=== PATIENT | female | born 1980 | race African-American/Black ===

== ENCOUNTER 2016-08-26 18:13 | Emergency (ER) | payer OTHER ==
[2016-08-26] MEDS ORDERED: ACETAMINOPHEN 325 MG TABLET PO ONE (18:25)
--- NOTE | 2016-08-26 18:26 | ER Document Report ---
ED Medical Screen (RME) - General Stated Complaint: FLU LIKE SYPTOMS Notes: Patient complains of flulike symptoms with sudden onset that started yesterday. Temp 103. Last dose of Tylenol was about 4 hours ago. No N/V/D/ - Related Data Allergies/Adverse Reactions: NSAIDS (Non-Steroidal Anti-Inflamma Allergy (Verified 08/26/16 18:25) steriods Allergy (Uncoded 08/26/16 18:25)
[2016-08-26 19:15] LABS: AMORPHOUS SEDIMENT,URINE TRACE /HPF; APPEARANCE,URINE CLOUDY; BILIRUBIN,URINE NEGATIVE (NEGATIVE); CALCIUM OXALATE CRYSTALS,URINE MODERATE /HPF; GLUCOSE, URINE NEGATIVE (NEGATIVE); KETONES,URINE TRACE mg/dL (NEGATIVE); LEUKOCYTE ESTERASE,URINE MODERATE (NEGATIVE); NITRITE,URINE NEGATIVE (NEGATIVE); PROTEIN,URINE 30 mg/dL (NEGATIVE); URINE SPECIFIC GRAVITY 1.021; UROBILINOGEN,URINE NEGATIVE mg/dL (<2.0)
[2016-08-26] MEDS ORDERED: ONDANSETRON 4 MG TAB.RAPDIS PO ONE (19:15)
[2016-08-26] MEDS ORDERED: PROMETHAZINE HCL 25 MG TABLET PO ONE (19:15)
[2016-08-26] MEDS ORDERED: OXYCODONE-ACETAMINOPHEN 5-325 MG TABLET PO ONE (19:15)
[2016-08-26] MEDS ORDERED: LIDOCAINE 1% INJ-PF (10 MG/ML) 30 ML SDV INJ ONE (19:59)
[2016-08-26] MEDS ORDERED: CEFTRIAXONE INJ 1000 MG VIAL IM ONE (19:59)
--- NOTE | 2016-08-26 20:11 | ER Document Report ---
ED Flu Like - General Chief Complaint: Flu Symptoms Stated Complaint: FLU LIKE SYPTOMS Notes: Patient has been sick since with symptoms typical of the flu. She says that she's had a cold and feels cold with fever. She has general aching in her bones, feeling freezing and cold and chills, nauseated but not vomiting. She has noted her head is pounding and she has head congestion. No sore throat or difficulty breathing. She has a primarily dry cough without any significant sputum production. 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 TRAVEL OUTSIDE OF THE [place] IN LAST 30 DAYS: No - Related Data Allergies/Adverse Reactions: NSAIDS (Non-Steroidal Anti-Inflamma Allergy (Verified 08/26/16 18:25) steriods Allergy (Uncoded 08/26/16 18:25) Past Medical History - Social History Smoking Status: Unknown if Ever Smoked Cigarette use (# per day): No Chew tobacco use (# tins/day): No Frequency of alcohol use: None Drug Abuse: None Family History: Reviewed & Not Pertinent Patient has suicidal ideation: No Patient has homicidal ideation: No Endocrine Medical History: Denies: Hx Diabetes Mellitus Type 1, Hx Diabetes Mellitus Type 2 Past Surgical History: Reports: Hx Gastric Bypass Surgery Review of Systems - Review of Systems Notes: REVIEW OF SYSTEMS: CONSTITUTIONAL : Fever present at home. Audible nasal congestion. Voice sounds normal. EENT: Denies eye, ear, or mouth or throat pain or other symptoms. Nasal congestion. CARDIOVASCULAR: Denies chest pain. RESPIRATORY: Dry cough, chest and not much congestion. Denies shortness of breath. GASTROINTESTINAL: Denies abdominal pain. Has nausea but not vomiting and no diarrhea. GENITOURINARY: Denies difficulty or painful urinating, urinary frequency, blood in urine. MUSCULOSKELETAL: Denies back or neck pain. Denies joint pain or swelling. SKIN: Denies rash or skin lesions. NEUROLOGICAL: Denies LOC or altered mental status. Denies headache. Denies sensory loss or motor deficits. ALL OTHER SYSTEMS REVIEWED AND NEGATIVE. Physical Exam - Vital signs Vitals: Temp Pulse Resp BP Pulse Ox 100.6 F H 133 H 12 148/105 H 98 08/26/16 18:23 08/26/16 18:23 08/26/16 18:23 08/26/16 18:23 08/26/16 18:23 Interpretation: Tachycardic, Febrile - Notes Notes: PHYSICAL EXAMINATION: GENERAL: Anxious, congested, tearful. Vital signs show some tachycardia and low -grade fever.. HEAD: Atraumatic, normocephalic. EYES: Pupils equal round and reactive to light, extraocular movements intact. ENT: oropharynx clear without exudates. Moist mucous membranes. NECK: Normal range of motion, supple. Easily touch his chin to chest, shaking head yes without any difficulty. LUNGS: Breath sounds clear and equal bilaterally. HEART: Regular rate and rhythm without murmurs. Heart rate 120 at bedside by me. ABDOMEN: Soft, nontender. No guarding or rebound. BACK: No tenderness throughout entire back. EXTREMITIES: Normal range of motion without pain. NEUROLOGICAL: Normal speech, normal gait. Normal sensory, motor, and reflex exams. Awake, alert, and oriented x3. Cranial nerves normal. SKIN: Warm, dry, no rashes. Course - Re-evaluation Re-evalutation: 08/26/16 20:35 Patient is being given Rocephin IM to initiate treatment for possible UTI. A culture of the urine has been ordered. Patient is being treated with Macrobid. - Vital Signs Vital signs: Temp Pulse Resp BP Pulse Ox 99.5 F 104 H 20 135/93 H 98 08/26/16 20:16 08/26/16 20:16 08/26/16 20:16 08/26/16 20:16 08/26/16 20:16 - Laboratory Laboratory results interpreted by me: 08/26/16 18:49 Urine Protein 30 H Urine Ketones TRACE H Urine Blood MODERATE H Ur Leukocyte Esterase MODERATE H 08/26/16 20:35 Urinalysis is suggestive of UTI. - Diagnostic Test Radiology results interpreted by me: 08/26/16 20:35 Chest x-ray is normal. No infiltrates and no consolidations. Discharge - Discharge Clinical Impression: Viral URI Urinary tract infection Qualifiers: Urinary tract infection type: site unspecified Hematuria presence: without hematuria Qualified Code(s): N39.0 - Urinary tract infection, site not specified Condition: Stable Disposition: HOME, SELF-CARE Additional Instructions: UPPER RESPIRATORY ILLNESS: You have a viral infection of the respiratory passages -- a "cold." This common infection causes nasal congestion, drainage, and often sore throat and cough. It is highly contagious. The disease usually lasts about 10 to 14 days. There is no "cure" for the viral infection -- it must run its course. If there is a complication, such as bacterial infection in the nose, sinuses, middle ear, or bronchial tubes, antibiotics may be required. The antibiotics won't affect the virus. Drink plenty of fluids. A humidifier may help. An expectorant medication or decongestant may make you more comfortable. Use acetaminophen or ibuprofen for fever or aches. See the doctor if fever persists over two days, if there is any significant worsening of your symptoms, or if you simply fail to improve as expected. Your symptoms suggest you might have the flu, but your flu tests are negative. There can be false negative tests, or you may just have a different viral illness like the flu. Your chest x-ray was normal. USE OF ACETAMINOPHEN (Tylenol): Acetaminophen may be taken for pain relief or fever control. It's much safer than aspirin, offering a wider range of "safe" dosages. It is safe during . Some brand names are Tylenol, Panadol, Datril, Anacin 3, Tempra, and Liquiprin. Acetaminophen can be repeated every four hours. The following are maximum recommended dosages: >89 pounds or adults 650 mg to 900 mg Acetaminophen can be repeated every four hours. Maximum dose not to exceed 4000 mg a day. Oral Narcotic Medication You have been given a prescription for pain control. This medication is a narcotic. It's best taken with food, as nausea can result if taken on an empty stomach. Don't operate machinery or drive within six hours of taking this medication. Do not combine this medicine with alcohol, or with any medication which can cause sedation (such as cold tablets or sleeping pills) unless you get permission from the physician. Narcotics tend to cause constipation. If possible, drink plenty of fluids and eat a diet high in fiber and fruits. Antinausea Medication You have been given a medication to suppress nausea and vomiting. This type of medication can be given as a shot, pill, or suppository. It will usually last for many hours. Pills and shots usually last six to eight hours, suppositories last about 12 hours. For the typical illness, only one or two doses of the medication may be necessary. Mild lightheadedness may occur. This type of medicine can cause drowsiness. Do not drive or operate dangerous machinery while under its influence. Do not mix with alcohol. See your doctor at once if you have muscle spasms or tightness, or uncontrollable motions (particularly of the neck, mouth, or jaw). Persistent vomiting or severe lightheadedness should also be evaluated by the physician. URINARY TRACT INFECTION: Your evaluation indicates that you have a urinary tract infection. This is due to germs growing in the bladder. This is a common problem. This infection usually responds quickly to antibiotics. Your antibiotic should be taken exactly as prescribed. Drink plenty of fluids -- three to four quarts a day. Occasionally, a bladder anesthetic will be prescribed to help stop the feeling of urgency until the antibiotic has a chance to clear the infection. This may cause your urine to be dark orange. Certain urine infections require a culture. If the doctor obtained a culture, the results will be back in two days. You should call to see if a change in treatment is needed. A repeat urinalysis after you finish treatment is often recommended. The physician will let you know if further testing is required. Call the doctor if you develop fever, chills, flank pain, inability to urinate, or blood in the urine. ANTIBIOTIC THERAPY: You have been given an antibiotic prescription. It's important that you take all the medication, unless instructed otherwise by your physician. Failure to complete the entire course can result in relapse of your condition. Common side effects of antibiotics include nausea, intestinal cramping, or diarrhea. Women may develop vaginal yeast infections, and babies can get yeast (thrush) in the mouth following the use of antibiotics. Contact your physician if you develop significant side effects from this medication. Allergy to this antibiotic can result in hives, wheezing, faintness, or itching. If symptoms of allergy occur, stop the medication and call the doctor. Rocephin You have been given an injection of an antibiotic called Rocephin ( ceftriaxone). Sometimes the injection must be combined with antibiotic pills. For some infections, such as an uncomplicated ear infection, Rocephin provides all the antibiotic that's needed. The antibiotic will be in your body for about two days. For serious infections, we usually repeat doses of Rocephin daily. Side effects are very unusual following a shot. Women may develop vaginal yeast infections, and babies can get yeast (thrush) in the mouth following the use of antibiotics. Contact your physician if you have symptoms with this medication. Allergy to this antibiotic can result in hives, wheezing, faintness, or itching. If symptoms of allergy occur, call the doctor at once. NITROFURANTOIN (MACRODANTIN, MACROBID): You have received a prescription for nitrofurantoin (Macrodantin). This antibiotic is used for urinary tract infections. Women who are or nursing should notify the physician before taking this medicine. If you have ever had a problem caused by this medication in the past, be sure the physician is aware of it. Common side effects of this medicine include nausea, vomiting, or decreased appetite. Notify your physician if these side effects become severe. Immediately stop this medicine and call the physician if you develop cough , shortness of breath, chest pain, weakness, jaundice (yellow color of the skin and whites of the eyes), or a skin rash. FOLLOW-UP CARE: If you have been referred to a physician for follow-up care, call the physician s office for an appointment as you were instructed or within the next two days. If you experience worsening or a significant change in your symptoms, notify the physician immediately or return to the Emergency Department at any time for re-evaluation. Rest and drink plenty of fluids. Return if you have new or worsening symptoms. Prescriptions: Hydrocodone/Acetaminophen [[place] 5-325 mg Tablet] 1 tab PO Q6HP PRN #15 tablet PRN Reason: Promethazine HCl [Phenergan 25 mg Tablet] 1 - 2 tab PO Q6HP PRN #15 tablet PRN Reason: Nitrofurantoin/Nitrofuran Mac [Macrobid 100 mg Capsule] 1 tab PO BID #14 capsule Forms: Return to Work
[2016-08-26] MEDS ORDERED: HYDROCODONE/ACETAMINOPHEN 5-325 MG 6 TAB/DSPK PO PRN (20:18)
[2016-08-26] MEDS ORDERED: ONDANSETRON ODT 4 MG TAB (6 TAB/DSPK) PO PRN (20:20)
[2016-08-26 20:21] VITALS: BP 135/93
== END 2016-08-26 20:30 | disposition home or self-care (01) ==
LOC: ER 18:13
DX: J06.9 Acute upper respiratory infection, unspecified (principal); B97.89 Other viral agents as the cause of diseases classified elsewhere; N39.0 Urinary tract infection, site not specified; R50.9 Fever, unspecified; R00.0 Tachycardia, unspecified; M89.8X0 Other specified disorders of bone, multiple sites; R05 Cough; R11.0 Nausea; R09.81 Nasal congestion; Z88.8 Allergy status to other drugs, medicaments and biological substances; Z98.84 Bariatric surgery status
CPT/HCPCS: 99284; 96372; 36415; 87086; 81001; 87804; 71020; S0119; J3490; J0696

== ENCOUNTER 2018-11-28 07:53 | Observation (INO) | payer BC ==
--- NOTE | 2018-11-28 09:00 | RADIOLOGY REPORT (SQ) ---
EXAM DESCRIPTION: CHEST SINGLE VIEW COMPLETED DATE/TIME: 11/28/2018 8:49 am REASON FOR STUDY: Chest Pain COMPARISON: 08/26/2016. EXAM PARAMETERS: NUMBER OF VIEWS: One view. TECHNIQUE: Single frontal radiographic view of the chest acquired. RADIATION DOSE: NA LIMITATIONS: None. FINDINGS: LUNGS AND PLEURA: No acute infiltrates or effusions. MEDIASTINUM AND HILAR STRUCTURES: No masses. Contour normal. HEART AND VASCULAR STRUCTURES: Normal heart and pulmonary vasculature. BONES: No acute findings. HARDWARE: Surgical clips left upper quadrant. OTHER: No other significant finding. IMPRESSION: NO ACUTE DISEASE. TECHNICAL DOCUMENTATION: JOB ID: [id number] 2010 [employer]- All Rights Reserved Reading location - IP/workstation name: [email or web address]
[2018-11-28] MEDS ORDERED: ONDANSETRON 4 MG TAB.RAPDIS PO ONE (11:03)
[2018-11-28] MEDS ORDERED: LIDOCAINE 2% VISCOUS SOLN 20 ML UDCUP PO ONE (11:03)
[2018-11-28] MEDS ORDERED: MAG HYDROX/AL HYDROX/SIMETH SUSP 30 ML UDCUP PO ONE (11:03)
--- NOTE | 2018-11-28 11:04 | ER Document Report ---
ED Medical Screen (RME) - General Chief Complaint: Chest Pain Stated Complaint: SHORT OF BREATH/ABDOMINAL PAIN Time Seen by Provider: 11/28/18 11:02 Mode of Arrival: Ambulatory Information source: Patient Notes: Patient states that she took 2 naproxen yesterday by accident without realizing it. Patient states she started to develop chest discomfort and shortness of breath with nausea after taking this medicine. Patient states that she is not allergic to this medicine although she should not be taking it due to history of gastric bypass surgery. Patient complains of persistent left-sided chest pain since yesterday around 10 PM. I have greeted and performed a rapid initial assessment of this patient. A comprehensive ED assessment and evaluation of the patient, analysis of test res ults and completion of the medical decision making process will be conducted by additional ED providers. TRAVEL OUTSIDE OF THE [place] IN LAST 30 DAYS: No - Related Data Allergies/Adverse Reactions: NSAIDS (Non-Steroidal Anti-Inflamma Allergy (Verified 11/28/18 07:55) steriods Allergy (Uncoded 11/28/18 07:55) Past Medical History Endocrine Medical History: Denies: Hx Diabetes Mellitus Type 1, Hx Diabetes Mellitus Type 2 Renal/ Medical History: Denies: Hx Peritoneal Dialysis Past Surgical History: Reports: Hx Gastric Bypass Surgery Physical Exam - Vital signs Vitals: Temp Pulse Resp BP Pulse Ox 98.9 F 85 16 141/83 H 100 11/28/18 08:06 11/28/18 08:06 11/28/18 08:06 11/28/18 08:06 11/28/18 08:06 - Cardiovascular Rhythm: Regular Heart sounds: S1 appreciated, S2 appreciated Murmur: No Course - Vital Signs Vital signs: Temp Pulse Resp BP Pulse Ox 98.9 F 85 16 141/83 H 100 11/28/18 08:06 11/28/18 08:06 11/28/18 08:06 11/28/18 08:06 11/28/18 08:06
[2018-11-28 11:36] LABS: ABSOLUTE BASOPHILS # (AUTO) 0.1 10^3/uL (0.0-0.2); ABSOLUTE EOSINOPHILS # (AUTO) 0.1 10^3/uL (0.0-0.6); ABSOLUTE LYMPHOCYTES (AUTO) 1.9 10^3/uL (0.5-4.7); ABSOLUTE MONOCYTES (AUTO) 0.5 10^3/uL (0.1-1.4); ABSOLUTE NEUT (AUTO) 5.7 10^3/uL (1.7-8.2); BASOPHILS % (AUTO) 0.6 % (0-2); EOSINOPHILS % (AUTO) 0.7 % (0-6); HEMATOCRIT 23.3 % (36.0-47.0); LYMPHOCYTES % (AUTO) 22.8 % (13-45); MEAN CORPUSCULAR HEMOGLOBIN 18.6 pg (27.0-33.4); MEAN CORPUSCULAR HGB CONC 28.9 g/dL (32.0-36.0); MONOCYTES % (AUTO) 6.2 % (3-13); RED BLOOD COUNT 3.62 10^6/uL (3.72-5.28); SEGMENTED NEUTROPHILS % (AUTO) 69.7 % (42-78); TOTAL CELLS COUNTED % (AUTO) 100 %; WHITE BLOOD COUNT 8.1 10^3/uL (4.0-10.5)
[2018-11-28 12:01] LABS: HEMOGLOBIN 6.7 g/dL (12.0-15.5)
[2018-11-28 12:05] LABS: ANISOCYTOSIS 2+; HYPOCHROMASIA 2+; OVALOCYTES SLIGHT; PLATELET CLUMPS PRESENT; PLATELET LARGE PRESENT; POIKILOCYTOSIS SLIGHT; POLYCHROMASIA SLIGHT; SCHISTOCYTES SLIGHT; TEAR DROP CELLS SLIGHT
[2018-11-28 12:06] LABS: MEAN CORPUSCULAR VOLUME 64 fl (80-97); PLATELET COMMENT INCREASED; PLATELET COUNT 460 10^3/uL (150-450)
[2018-11-28 12:16] LABS: ALANINE AMINOTRANSFERASE 31 U/L (9-52); ALBUMIN 3.9 g/dL (3.5-5.0); ALKALINE PHOSPHATASE 132 U/L (38-126); ANION GAP 10 (5-19); ASPARTATE AMINO TRANSFERASE 20 U/L (14-36); BILIRUBIN,DIRECT 0.2 mg/dL (0.0-0.4); BILIRUBIN,TOTAL 0.5 mg/dL (0.2-1.3); BLOOD UREA NITROGEN 10 mg/dL (7-20); CALCIUM 9.2 mg/dL (8.4-10.2); CARBON DIOXIDE 27 mmol/L (22-30); CHLORIDE 105 mmol/L (98-107); CREATINE KINASE 26 U/L (30-135); GLUCOSE 85 mg/dL (75-110); POTASSIUM 4.2 mmol/L (3.6-5.0); SODIUM 141.5 mmol/L (137-145); TOTAL PROTEIN 7.6 g/dL (6.3-8.2)
[2018-11-28 12:28] LABS: CREATINE KINASE MB < 0.22 ng/mL (<4.55); TROPONIN I < 0.012 ng/mL
[2018-11-28 12:45] LABS: INTERNATIONAL RATION (INR) 1.03
[2018-11-28 12:46] LABS: PARTIAL THROMBOPLASTIN TIME 27.4 SEC (23.5-35.8)
--- NOTE | 2018-11-28 14:44 | ER Document Report ---
ED General - General Chief Complaint: Chest Pain Stated Complaint: SHORT OF BREATH/ABDOMINAL PAIN Time Seen by Provider: 11/28/18 11:02 Mode of Arrival: Ambulatory Notes: Patient is a 38-year-old female who is here complaining of some sharp anterior left-sided chest pain since yesterday. She is also having some heartburn and feeling weak and dizzy. She is never had any heart problems. Known to be anemic, but never received transfusions. She is on her current menstrual cycle, day 3. Patient has had some nausea but not vomiting. No diarrhea. No black stools. No vomiting of blood or blood by rectum. Patient has a history of anemia and was transfused of iron but not of red cells [place]. Shortness of breath with activity. PMH: Gastric bypass 10 years ago. TRAVEL OUTSIDE OF THE [place] IN LAST 30 DAYS: No - Related Data Allergies/Adverse Reactions: NSAIDS (Non-Steroidal Anti-Inflamma Allergy (Verified 11/28/18 07:55) steriods Allergy (Uncoded 11/28/18 07:55) Past Medical History - General Information source: Patient - Social History Smoking Status: Never Smoker Frequency of alcohol use: None Drug Abuse: None Family History: Reviewed & Not Pertinent Patient has suicidal ideation: No Patient has homicidal ideation: No - Past Medical History Cardiac Medical History: Denies: Hx Coronary Artery Disease Endocrine Medical History: Denies: Hx Diabetes Mellitus Type 1, Hx Diabetes Mellitus Type 2 Past Surgical History: Reports: Hx Gastric Bypass Surgery Review of Systems - Review of Systems Notes: REVIEW OF SYSTEMS: CONSTITUTIONAL : Denies fever. EENT: Denies eye, ear, nose or mouth or throat pain or other symptoms. CARDIOVASCULAR: See HPI. RESPIRATORY: Feels shortness of breath and difficulty breathing, especially with effort and exertion.. GASTROINTESTINAL: Denies abdominal pain but does have some nausea, not vomiting, no diarrhea. Not having any blood in stools area no black stools. GENITOURINARY: Denies difficulty or painful urinating, urinary frequency, blood in urine. MUSCULOSKELETAL: Denies back or neck pain. Denies joint pain or swelling. SKIN: Denies rash or skin lesions. NEUROLOGICAL: Denies LOC or altered mental status. Denies headache. Denies sensory loss or motor deficits. ALL OTHER SYSTEMS REVIEWED AND NEGATIVE. Physical Exam - Vital signs Vitals: Temp Pulse Resp BP Pulse Ox 98.9 F 85 16 141/83 H 100 11/28/18 08:06 11/28/18 08:06 11/28/18 08:06 11/28/18 08:06 11/28/18 08:06 Interpretation: Normal Notes: PHYSICAL EXAMINATION: GENERAL: Well-appearing, in no acute distress. HEAD: Atraumatic, normocephalic. EYES: Pupils equal round and reactive to light, extraocular movements intact. ENT: oropharynx clear without exudates. Moist mucous membranes. Tongue pale. NECK: Normal range of motion, supple. LUNGS: Breath sounds clear and equal bilaterally. HEART: Regular rate and rhythm without murmurs. ABDOMEN: Soft, nontender. No guarding or rebound. No masses. BACK: No tenderness throughout entire back. EXTREMITIES: Normal range of motion without pain. Negative Homans bilaterally. NEUROLOGICAL: Normal speech, normal gait. Normal sensory, motor, and reflex exams. Awake, alert, and oriented x3. Cranial nerves normal. PSYCH: Normal mood, normal affect. SKIN: Warm, dry, no rashes. Course - Re-evaluation Re-evalutation: 11/28/18 15:00 Spoke to the hospitalist who will admit the patient for transfusions. Patient i s being transfused 2 units of packed cells. - Vital Signs Vital signs: Temp Pulse Resp BP Pulse Ox 98.9 F 85 12 141/83 H 100 11/28/18 08:06 11/28/18 08:06 11/28/18 14:37 11/28/18 08:06 11/28/18 14:37 - Laboratory Result Diagrams: 11/28/18 11:15 11/28/18 11:15 Laboratory results interpreted by me: 11/28/18 11/28/18 11/28/18 11:15 11:15 14:16 RBC 3.62 L Hgb 6.7 L Hct 23.3 L MCV 64 L MCH 18.6 L MCHC 28.9 L RDW 19.0 H Plt Count 460 H Alkaline Phosphatase 132 H Creatine Kinase 26 L Crossmatch See Detail - Diagnostic Test Radiology results interpreted by ga: 11/28/18 15:04 Chest x-ray is normal. - EKG Interpretation by Fl EKG shows normal: Sinus rhythm Rate: Normal Rhythm: NSR Additional EKG results interpreted by me: 11/28/18 15:04 E[address] is normal. No ST elevation. Discharge - Discharge Clinical Impression: Anemia, Chest pain, non-cardiac Disposition: ADMITTED OBSERVATION Admitting Provider: Richard (Hospitalist) Unit Admitted: Telemetry
[2018-11-28] MEDS ORDERED: NORMAL SALINE 250 ML IV PRN (14:50)
[2018-11-28] MEDS ORDERED: IPRATROPIUM/ALBUTEROL 0.5-2.5 MG/3 ML AMPUL NEB PRN (17:21)
[2018-11-28] MEDS ORDERED: NORMAL SALINE 1000 ML 1,000 ML IV PRN (17:21)
--- NOTE | 2018-11-28 17:43 | PDOC H&P ---
History of Present Illness Admission Date/PCP: 11/28/18 15:09 History of Present Illness: ANTIONE MAY is a 38 year old female A1 with past medical history of morbid obesity status post gastric bypass in 2008, chronic anemia history of several PRBC transfusion, chronic iron and vitamin B12, history of heavy menstrual bleeding presenting to ED complaining of chronic worsening weakness, fatigue, dizziness. Last night she started having sob, left-sided chest pain. Patient is stating that she thought she was taking a Tylenol for chronic bilateral leg pain, but her daughter had given her naproxen by mistake, after taking naproxen patient started to having worsening epi-gastric abdominal pain, non-radiating left-sided chest pain, sharp, worse with movement and cough. Currently menstruating day 3. She states that her menstruation usually lasts 5 days, first 2 days usually heavy bleeding. She also endorses history of nosebleeds, easy bruising, excessive bleeding post dental extraction. Denies any hemoptysis, hematemesis, melena, hematochezia or hematuria. She has been treating her anemia with iron, B12, multivitamin supplements. Never been evaluated by progressive care nurse. In ED hemoglobin 6.7, platelet 460, troponins less than 0.012, EKG no acute changes. She was given 2 PRBCs and hospitalist was consulted for admission. Past Medical History Cardiac Medical History: Denies: Coronary Artery Disease Endocrine Medical History: Denies: Diabetes Mellitus Type 1, Diabetes Mellitus Type 2 Hematology: Reports: Anemia Past Surgical History Past Surgical History: Reports: Gastric Bypass Surgery Social History Smoking Status: Never Smoker Family History Family History: Reviewed & Not Pertinent Parental Family History Reviewed: Yes Children Family History Reviewed: Yes Sibling(s) Family History Reviewed.: Yes Medication/Allergy Home Medications: Hydrocodone/Acetaminophen [Outing 5-325 mg Tablet] 1 tab PO Q6HP PRN #15 tablet 08/26/16 Nitrofurantoin/Nitrofuran Mac [Macrobid 100 mg Capsule] 1 tab PO BID #14 capsule 08/26/16 Promethazine HCl [Phenergan 25 mg Tablet] 1 - 2 tab PO Q6HP PRN #15 tablet 08/26/16 Allergies/Adverse Reactions: NSAIDS (Non-Steroidal Anti-Inflamma Allergy (Verified 11/28/18 07:55) steriods Allergy (Uncoded 11/28/18 07:55) Review of Systems Review of Systems: as per hpi Physical Exam Vital Signs: Temp Pulse Resp BP Pulse Ox 98.9 F 85 15 131/82 H 100 11/28/18 08:06 11/28/18 08:06 11/28/18 15:01 11/28/18 15:00 11/28/18 15:01 Intake & Output 11/27/18 11/28/18 11/29/18 06:59 06:59 06:59 Weight 90.4 kg General appearance: PRESENT: no acute distress, well-developed, well-nourished Head exam: PRESENT: atraumatic, normocephalic Eye exam: PRESENT: conjunctiva pink, EOMI, PERRLA. ABSENT: scleral icterus Ear exam: PRESENT: normal external ear exam Mouth exam: PRESENT: moist, tongue midline Neck exam: ABSENT: carotid bruit, JVD, lymphadenopathy, thyromegaly Respiratory exam: PRESENT: clear to auscultation angelito. ABSENT: rales, rhonchi, wheezes Cardiovascular exam: PRESENT: RRR. ABSENT: diastolic murmur, rubs, systolic murmur Pulses: PRESENT: normal dorsalis pedis pul Vascular exam: PRESENT: normal capillary refill GI/Abdominal exam: PRESENT: normal bowel sounds, soft. ABSENT: distended, guarding, mass, organolmegaly, rebound, tenderness Rectal exam: PRESENT: deferred Extremities exam: PRESENT: full ROM. ABSENT: calf tenderness, clubbing, pedal edema Neurological exam: PRESENT: alert, awake, oriented to person, oriented to place, oriented to time, oriented to situation, CN II-XII grossly intact. ABSENT: motor sensory deficit Psychiatric exam: PRESENT: appropriate affect, normal mood. ABSENT: homicidal ideation, suicidal ideation Skin exam: PRESENT: dry, intact, warm. ABSENT: cyanosis, rash Results Laboratory Results: 11/28/18 11:15 11/28/18 11:15 11/28/18 11/28/18 11/28/18 11:15 11:15 11:15 WBC 8.1 RBC 3.62 L Hgb 6.7 L Hct 23.3 L MCV 64 L MCH 18.6 L MCHC 28.9 L RDW 19.0 H Plt Count 460 H Seg Neutrophils % 69.7 Lymphocytes % 22.8 Monocytes % 6.2 Eosinophils % 0.7 Basophils % 0.6 Absolute Neutrophils 5.7 Absolute Lymphocytes 1.9 Absolute Monocytes 0.5 Absolute Eosinophils 0.1 Absolute Basophils 0.1 Sodium 141.5 Potassium 4.2 Chloride 105 Carbon Dioxide 27 Anion Gap 10 BUN 10 Creatinine 0.61 Est GFR ( Amer) > 60 Est GFR (Non-Af Amer) > 60 Glucose 85 Calcium 9.2 Total Bilirubin 0.5 AST 20 ALT 31 Alkaline Phosphatase 132 H Total Protein 7.6 Albumin 3.9 Lipase 141.8 Serum HCG, Qual Blood Type Antibody Screen 11/28/18 11/28/18 11:15 14:16 WBC RBC Hgb Hct MCV MCH MCHC RDW Plt Count Seg Neutrophils % Lymphocytes % Monocytes % Eosinophils % Basophils % Absolute Neutrophils Absolute Lymphocytes Absolute Monocytes Absolute Eosinophils Absolute Basophils Sodium Potassium Chloride Carbon Dioxide Anion Gap BUN Creatinine Est GFR ( Amer) Est GFR (Non-Af Amer) Glucose Calcium Total Bilirubin AST ALT Alkaline Phosphatase Total Protein Albumin Lipase Serum HCG, Qual NEGATIVE Blood Type A POSITIVE Antibody Screen NEGATIVE 11/28/18 11/28/18 11:15 11:15 Creatine Kinase 26 L CK-MB (CK-2) < 0.22 Troponin I < 0.012 Impressions: Chest X-Ray 11/28/18 00:00 IMPRESSION: NO ACUTE DISEASE. Assessment and Plan - Diagnosis (1) Anemia Qualifiers: Anemia type: iron deficiency Iron deficiency anemia type: chronic blood loss Qualified Code(s): D50.0 - Iron deficiency anemia secondary to blood loss (chronic) Is this a current diagnosis for this admission?: Yes Plan: Microcytic anemia. MCV 64. Most likely iron deficiency anemia combined with B12 deficiency as patient has history of gastric bypass. Status post 2 PRBC transfusion. Continue iron, B12, folic acid supplements. H&H every 12. Transfuse if actively bleeding, symptomatic, or under hgb<7. Iron panel, B12, folic acid and reticulocyte count pending. We will consult hematology for further work-up for the cause of anemia other than iron deficiency. (2) Chest pain, non-cardiac Is this a current diagnosis for this admission?: Yes Plan: Most likely noncardiac due to severe anemia. EKG negative for any acute changes, troponins negative. Patient also complaining of shortness of breath. Will order CTA to rule out any PE. (3) Obesity Qualifiers: Body mass index: BMI 33.0-33.9 Is this a current diagnosis for this admission?: No Plan: Stable gastric bypass x10 years. Lifestyle and diet modification. Will obtain TSH. (4) Thrombocytosis Is this a current diagnosis for this admission?: Yes Plan: Likely due to iron deficiency anemia. Treat underlying anemia.
--- NOTE | 2018-11-28 17:56 | RADIOLOGY REPORT (SQ) ---
EXAM DESCRIPTION: CTA CHEST COMPLETED DATE/TIME: 11/28/2018 5:44 pm REASON FOR STUDY: r/o PE COMPARISON: None. TECHNIQUE: CT scan of the chest performed using helical scanning technique with dynamic intravenous contrast injection. Images reviewed with lung, soft tissue and bone windows. Reconstructed coronal and sagittal MPR images reviewed. Additional 3 dimensional post-processing performed to develop Maximal Intensity Projection images (AZ P). All images stored on PACS. All CT scanners at this facility use dose modulation, iterative reconstruction, and/or weight based d osing when appropriate to reduce radiation dose to as low as reasonably achievable (ALARA). [facility]: Dose Right [facility]: CareDose [facility]: Dose Right [facility]: Teradose 4D [facility]: Vidimax CONTRAST TYPE AND DOSE: 80 mL Omnipaque 350- low osmolar. Contrast bolus optimized for the pulmonary arteries. Not diagnostic for the aorta. RENAL FUNCTION: None required. The patient is less than 50 years old. RADIATION DOSE: . LIMITATIONS: None. FINDINGS: LUNGS AND PLEURA: No masses, infiltrates, or pneumothorax. No pleural effusions or pleura l calcifications. AORTA AND GREAT VESSELS: No aneurysm. Contrast bolus not optimized for the aorta. HEART: No pericardial effusion. No significant coronary artery calcifications. PULMONARY ARTERIES: No emboli visualized in the main pulmonary arteries or the segmental branches. HILAR AND MEDIASTINAL STRUCTURES: No identified masses or abnormal nodes. HARDWARE: None in the chest. UPPER ABDOMEN: Postsurgical changes noted about the upper abdomen. Limited exam is otherwise unremar kable. THYROID AND OTHER SOFT TISSUES: No masses. No adenopathy. BONES: No acute or significant finding. 3D MIPS: Confirm above findings. OTHER: No other significant finding. IMPRESSION: No evidence of pulmonary embolus or other acute intrathoracic process. COMMENT: Quality ID # [id number]: Final reports with documentation of one or more dose reduction techniques (e.g., Automated exposure control, adjustment of the mA and/or kV according to patient size, use of iterative reconstruction technique) TECHNICAL DOCUMENTATION: JOB ID: [id number] [employer]- All Rights Reserved Reading location - IP/workstation name: [email or web address]
[2018-11-28] MEDS: CYANOCOBALAMIN (VITAMIN B-12) INJ 1000 MCG/1 ML VIAL IM SCH (18:23)
[2018-11-28] MEDS: FOLIC ACID 1 MG TABLET PO SCH (18:23)
[2018-11-28 18:39] LABS: ABSOLUTE RETICS # 0.083 10^6/uL (0.028-0.122)
[2018-11-28 19:22] LABS: FERRITIN 4.08 ng/mL (6.2-137.0)
--- NOTE | 2018-11-28 19:40 | EKG REPORT ---
SEVERITY:- BORDERLINE ECG - SINUS RHYTHM BORDERLINE T ABNORMALITIES, INFERIOR LEADS : Confirmed by: Emilie Mayo MD 28-Nov-2018 19:39:48
[2018-11-28 19:56] LABS: FOLATE > 20.00 ng/mL (>2.76)
[2018-11-28] MEDS: GUAIFENESIN 600 MG TABLET.SA PO SCH (22:26)
[2018-11-28] MEDS: FAMOTIDINE 20 MG TABLET PO SCH (22:26)
[2018-11-29] MEDS: PROMETHAZINE HCL 6.25 MG/5 ML SYRUP 60 ML PO PRN ×2 (03:24→23:10)
[2018-11-29 06:55] LABS: HEMATOCRIT 25.5 % (36.0-47.0); MEAN CORPUSCULAR HEMOGLOBIN 20.3 pg (27.0-33.4); MEAN CORPUSCULAR HGB CONC 30.2 g/dL (32.0-36.0); MEAN CORPUSCULAR VOLUME 67 fl (80-97); PLATELET COUNT 403 10^3/uL (150-450); RED CELL DISTRIBUTION WIDTH 20.7 % (11.5-14.0); WHITE BLOOD COUNT 7.8 10^3/uL (4.0-10.5)
[2018-11-29 06:58] LABS: HEMOGLOBIN 7.7 g/dL (12.0-15.5)
[2018-11-29 07:21] LABS: ALANINE AMINOTRANSFERASE 20 U/L (9-52); ALBUMIN 3.4 g/dL (3.5-5.0); ALKALINE PHOSPHATASE 114 U/L (38-126); ANION GAP 8 (5-19); ASPARTATE AMINO TRANSFERASE 15 U/L (14-36); BILIRUBIN,DIRECT 0.2 mg/dL (0.0-0.4); BILIRUBIN,TOTAL 0.6 mg/dL (0.2-1.3); BLOOD UREA NITROGEN 8 mg/dL (7-20); CALCIUM 8.6 mg/dL (8.4-10.2); CARBON DIOXIDE 27 mmol/L (22-30); CHLORIDE 105 mmol/L (98-107); GLUCOSE 85 mg/dL (75-110); SODIUM 140.2 mmol/L (137-145); TOTAL PROTEIN 6.8 g/dL (6.3-8.2)
[2018-11-29] MEDS ORDERED: NORMAL SALINE 250 ML IV PRN ×2 (08:05)
[2018-11-29] MEDS ORDERED: FERRIC CARBOXYMALTOSE INJ 750 MG/15 ML VIAL IV PRN (08:06)
[2018-11-29] MEDS ORDERED: IRON DEXTRAN INJ 100 MG/2 ML VIAL IV ONE (08:07)
[2018-11-29] MEDS ORDERED: IRON DEXTRAN COMPLEX 25 MG in NORMAL SALINE 100 ML IV PRN (08:11)
[2018-11-29] MEDS ORDERED: NORMAL SALINE IV PRN (08:14)
[2018-11-29] MEDS ORDERED: IRON DEXTRAN COMPLEX IV PRN (08:14)
[2018-11-29] MEDS: CHOLECALCIFEROL (D3) 1,000 UNIT TABLET PO SCH (09:22)
[2018-11-29] MEDS: GUAIFENESIN 600 MG TABLET.SA PO SCH ×2 (09:23→22:16)
[2018-11-29] MEDS: FAMOTIDINE 20 MG TABLET PO SCH ×2 (09:23→22:16)
[2018-11-29] MEDS: FOLIC ACID 1 MG TABLET PO SCH (09:23)
--- NOTE | 2018-11-29 10:30 | PDOC PROGRESS REPORT ---
Subjective Progress Note for:: 11/29/18 Subjective:: ANTIONE MAY is a 38 year old female A1 with past medical history of morbid obesity status post gastric bypass in 2008, chronic anemia history of several PRBC transfusion, chronic iron and vitamin B12, history of heavy menstrual bleeding presenting to ED complaining of chronic worsening weakness, fatigue, dizziness. Last night she started having sob, left-sided chest pain. Patient is stating that she thought she was taking a Tylenol for chronic bilateral leg pain, but her daughter had given her naproxen by mistake, after taking naproxen patient started to having worsening epi-gastric abdominal pain, non-radiating left-sided chest pain, sharp, worse with movement and cough. Currently menstruating day 3. She states that her menstruation usually lasts 5 days, first 2 days usually heavy bleeding. She also endorses history of nosebleeds, easy bruising, excessive bleeding post dental extraction. Denies any hemoptysis, hematemesis, melena, hematochezia or hematuria. She has been treating her anemia with iron, B12, multivitamin supplements. Never been evaluated by adult psychiatrist. In ED hemoglobin 6.7, platelet 460, troponins less than 0.012, EKG no acute changes. She was given 2 PRBCs and hospitalist was consulted for admission. 11/29/2018. No acute events overnight. Patient still complaining of weakness and lethargy and bilateral lower extremity pain. She is status post 2 PRBC transfusion however her hemoglobin is still under 8. Hematology has been consulted. Patient initially wanted to leave today but after explaining to her that she will need more transfusion and iron transfusion she decided to stay another day. Denies any fever, chills, nausea, vomiting, diarrhea, constipation or any urinary symptoms. SBP 114-141, T-max 98.4, pulse 80s, RR 16-20, SPO2 100% on room air. WBC 7.8, hemoglobin 7.7 up from 6.7 status post 2 PRBC transfusion on 11/28/2018. Reticulocyte count within normal limits, sodium 140, potassium 4.0, bicarb 27, creatinine 0.58, iron 23.0, TIBC 536, percent saturation 4, ferritin 4.08, B12 991, folic acid more than 20, LDH 142, TSH 1.71 Reason For Visit: ANEMIA Physical Exam Vital Signs: Temp Pulse Resp BP Pulse Ox 98.4 F 84 16 126/84 H 98 11/29/18 08:42 11/29/18 08:42 11/29/18 08:42 11/29/18 08:42 11/29/18 08:42 Intake & Output 11/28/18 11/29/18 11/30/18 06:59 06:59 06:59 Intake Total 510 Balance 510 Weight 92.2 kg General appearance: PRESENT: no acute distress, obese, well-developed, well- nourished Head exam: PRESENT: atraumatic, normocephalic Eye exam: PRESENT: conjunctiva pink, EOMI, PERRLA. ABSENT: scleral icterus Ear exam: PRESENT: normal external ear exam Mouth exam: PRESENT: moist, tongue midline Neck exam: ABSENT: carotid bruit, JVD, lymphadenopathy, thyromegaly Respiratory exam: PRESENT: clear to auscultation angelito. ABSENT: rales, rhonchi, wheezes Cardiovascular exam: PRESENT: RRR. ABSENT: diastolic murmur, rubs, systolic murmur Pulses: PRESENT: normal dorsalis pedis pul Vascular exam: PRESENT: normal capillary refill GI/Abdominal exam: PRESENT: normal bowel sounds, soft. ABSENT: distended, guarding, mass, organolmegaly, rebound, tenderness Rectal exam: PRESENT: deferred Extremities exam: PRESENT: full ROM. ABSENT: calf tenderness, clubbing, pedal edema Neurological exam: PRESENT: alert, awake, oriented to person, oriented to place, oriented to time, oriented to situation, CN II-XII grossly intact. ABSENT: motor sensory deficit Psychiatric exam: PRESENT: appropriate affect, normal mood. ABSENT: homicidal ideation, suicidal ideation Skin exam: PRESENT: dry, intact, warm. ABSENT: cyanosis, rash Results Laboratory Results: 11/29/18 06:38 11/29/18 06:38 11/28/18 11/28/18 11/28/18 11:15 11:15 11:15 WBC 8.1 RBC 3.62 L Hgb 6.7 L Hct 23.3 L MCV 64 L MCH 18.6 L MCHC 28.9 L RDW 19.0 H Plt Count 460 H Seg Neutrophils % 69.7 Lymphocytes % 22.8 Monocytes % 6.2 Eosinophils % 0.7 Basophils % 0.6 Absolute Neutrophils 5.7 Absolute Lymphocytes 1.9 Absolute Monocytes 0.5 Absolute Eosinophils 0.1 Absolute Basophils 0.1 Retic Count (auto) Absolute Retic Sodium 141.5 Potassium 4.2 Chloride 105 Carbon Dioxide 27 Anion Gap 10 BUN 10 Creatinine 0.61 Est GFR ( Amer) > 60 Est GFR (Non-Af Amer) > 60 Glucose 85 Calcium 9.2 Iron TIBC % Saturation Ferritin Total Bilirubin 0.5 AST 20 ALT 31 Alkaline Phosphatase 132 H Total Protein 7.6 Albumin 3.9 Lipase 141.8 Vitamin B12 Folate TSH Serum HCG, Qual Blood Type Antibody Screen 11/28/18 11/28/18 11/28/18 11:15 11:15 11:15 WBC RBC Hgb Hct MCV MCH MCHC RDW Plt Count Seg Neutrophils % Lymphocytes % Monocytes % Eosinophils % Basophils % Absolute Neutrophils Absolute Lymphocytes Absolute Monocytes Absolute Eosinophils Absolute Basophils Retic Count (auto) 2.30 Absolute Retic 0.083 Sodium Potassium Chloride Carbon Dioxide Anion Gap BUN Creatinine Est GFR ( Amer) Est GFR (Non-Af Amer) Glucose Calcium Iron 23.0 L TIBC 536 H % Saturation 4 Ferritin 4.08 L Total Bilirubin AST ALT Alkaline Phosphatase Total Protein Albumin Lipase Vitamin B12 991.0 H Folate > 20.00 TSH Serum HCG, Qual NEGATIVE Blood Type Antibody Screen 11/28/18 11/28/18 11/29/18 11:15 14:16 06:38 WBC 7.8 RBC 3.80 Hgb 7.7 L Hct 25.5 L MCV 67 L MCH 20.3 L MCHC 30.2 L RDW 20.7 H Plt Count 403 Seg Neutrophils % Lymphocytes % Monocytes % Eosinophils % Basophils % Absolute Neutrophils Absolute Lymphocytes Absolute Monocytes Absolute Eosinophils Absolute Basophils Retic Count (auto) Absolute Retic Sodium Potassium Chloride Carbon Dioxide Anion Gap BUN Creatinine Est GFR ( Amer) Est GFR (Non-Af Amer) Glucose Calcium Iron TIBC % Saturation Ferritin Total Bilirubin AST ALT Alkaline Phosphatase Total Protein Albumin Lipase Vitamin B12 Folate TSH 1.71 Serum HCG, Qual Blood Type A POSITIVE Antibody Screen NEGATIVE 11/29/18 06:38 WBC RBC Hgb Hct MCV MCH MCHC RDW Plt Count Seg Neutrophils % Lymphocytes % Monocytes % Eosinophils % Basophils % Absolute Neutrophils Absolute Lymphocytes Absolute Monocytes Absolute Eosinophils Absolute Basophils Retic Count (auto) Absolute Retic Sodium 140.2 Potassium 4.0 Chloride 105 Carbon Dioxide 27 Anion Gap 8 BUN 8 Creatinine 0.58 Est GFR ( Amer) > 60 Est GFR (Non-Af Amer) > 60 Glucose 85 Calcium 8.6 Iron TIBC % Saturation Ferritin Total Bilirubin 0.6 AST 15 ALT 20 Alkaline Phosphatase 114 Total Protein 6.8 Albumin 3.4 L Lipase Vitamin B12 Folate TSH Serum HCG, Qual Blood Type Antibody Screen 11/28/18 11/28/18 11/29/18 11:15 11:15 06:38 Creatine Kinase 26 L CK-MB (CK-2) < 0.22 Troponin I < 0.012 NT-Pro-B Natriuret Pep 98 Impressions: Chest X-Ray 11/28/18 00:00 IMPRESSION: NO ACUTE DISEASE. Chest/Abdomen CTA 11/28/18 00:00 IMPRESSION: No evidence of pulmonary embolus or other acute intrathoracic process. Assessment and Plan - Diagnosis (1) Anemia Qualifiers: Anemia type: iron deficiency Iron deficiency anemia type: chronic blood loss Qualified Code(s): D50.0 - Iron deficiency anemia secondary to blood loss (chronic) Is this a current diagnosis for this admission?: Yes Plan: Microcytic anemia. MCV 64. Severe iron deficiency anemia. Most likely iron deficiency anemia combined with B12 deficiency as patient has history of gastric bypass. Endorses heavy bleeding, denies any hematemesis, hematochezia, Hemoccult, melena or hematuria. Status post 2 PRBC transfusion on 11/28/2018. WBC 7.8, hemoglobin 7.7 up from 6.7 status post 2 PRBC transfusion on 11/28/2018. Retic wnl. Iron 23.0, TIBC 536, percent saturation 4, ferritin 4.08, B12 991, folic acid > 20, LDH 142 We will transfuse 2 more PRBCs and Injectafer x1. Continue iron, B12, folic acid supplements. H&H every 12. Transfuse if actively bleeding, symptomatic, or under hgb<7. Oncology has been consulted will note recommendations. (2) Chest pain, non-cardiac Is this a current diagnosis for this admission?: Yes Plan: Resolved. Most likely noncardiac due to severe anemia. EKG negative for any acute changes, troponins negative. 11/28/2018 CTA negative for PE. (3) Obesity Qualifiers: Body mass index: BMI 33.0-33.9 Is this a current diagnosis for this admission?: No Plan: Stable gastric bypass x10 years. Lifestyle and diet modification. Will obtain TSH. (4) Thrombocytosis Is this a current diagnosis for this admission?: Yes Plan: Likely due to iron deficiency anemia. Improved. Treat underlying anemia.
[2018-11-29] MEDS: ENOXAPARIN SODIUM INJ 40 MG/0.4 ML DISP.SYRIN SUBCUT SCH (11:03)
[2018-11-29 11:49] LABS: PATH REVIEW PATHOLOGIST REVIEWED
[2018-11-29] MEDS: ACETAMINOPHEN 325 MG TABLET PO PRN ×2 (14:23→22:15)
--- NOTE | 2018-11-29 15:07 | PDOC CONSULTATION ---
Consultation Consult Date: 11/29/18 Provider Consulted: JADON GIFFORD Consult reason:: Hematology/ Oncology consultation was requested for patient with anemia. History of Present Illness Admission Date/PCP: 11/28/18 15:09 History of Present Illness: ANTIONE MAY is a 38 year old female who states that she has had anemia since childhood. However, after she underwent gastric bypass in 2008 the anemia became worse. [place], but her insurance changed, and she was not able to continue her treatments regularly. She thought that she would be OK with just using oral iron. However, she has been feeling much worse lately. She has had fatigue, leg cramps, and constantly craves ice. She presented to the ED and was found to have HGB 6.7. She was giv en 2 units of pRBCs. Today, she states that she still feels quite poorly. She knows that it will take her some time to improve. 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 . - Advance Directive Resuscitation Status: Full Code Family History Parental Family History Reviewed: Yes - Mother with transfusion dependent anemia . Father with CAD, HTN, obesity Children Family History Reviewed: Yes - Daughter with anemia Sibling(s) Family History Reviewed.: No Medication/Allergy Home Medications: Acetaminophen [Tylenol 325 mg Tablet] 325 mg PO DAILYP PRN 11/29/18 Albuterol Sulfate [Proair Hfa Inhalation Aerosol 8.5 gm Mdi] 1 puff IH Q4 PRN 11/29/18 Ca/D3/Mag Ox/Zinc/Timber Sizer/Cesar/Bor [Calcium 600+D3 Plus Caplet] 2 tab-cap PO DAILY 11/29/18 Cetirizine HCl [Zyrtec 10 mg Tablet] 1 tab PO DAILY 11/29/18 Cholecalciferol (Vitamin D3) [Vitamin D3 1000 Unit Tablet] 2,000 unit PO DAILY 11/29/18 Diphenhydramine HCl [Benadryl] 25 mg PO DAILYP PRN 11/29/18 Docusate Sodium [Stool Softener] 100 mg PO BID PRN 11/29/18 Doxycycline Hyclate [Vibramycin 100 mg Tablet] 100 mg PO BID 11/29/18 Ferrous Sulfate [Iron] 650 mg PO BID PRN 11/29/18 Fluticasone Propionate [Flonase Nasal [place] 50 Mcg/[place] 16 gm] 2 sprays NASL DAILY 11/29/18 Mecobalamin [B-12] 1,000 mcg SL DAILY 11/29/18 Multivit with Calcium,Iron,Min [Women's Daily Formula] 2 each PO DAILY 11/29/18 Naproxen Sodium [Midol] 220 mg PO ASDIR PRN 11/29/18 Allergies/Adverse Reactions: NSAIDS (Non-Steroidal Anti-Inflamma Allergy (Verified 11/28/18 07:55) steriods Allergy (Uncoded 11/28/18 07:55) Review of Systems Constitutional: PRESENT: fatigue, headache(s), weakness. ABSENT: fever(s) Eyes: ABSENT: visual disturbances Ears: ABSENT: hearing changes Nose, Mouth, and Throat: ABSENT: sore throat Cardiovascular: PRESENT: dyspnea on exertion. ABSENT: chest pain Respiratory: PRESENT: dyspnea Gastrointestinal: ABSENT: diarrhea, nausea Genitourinary: ABSENT: dysuria Integumentary: ABSENT: rash Hematologic/Lymphatic: ABSENT: easy bleeding, easy bruising Physical Exam Vital Signs: Temp Pulse Resp BP Pulse Ox 98.6 F 70 15 105/68 98 11/29/18 14:05 11/29/18 14:05 11/29/18 14:05 11/29/18 14:05 11/29/18 14:05 Intake & Output 11/28/18 11/29/18 11/30/18 06:59 06:59 06:59 Intake Total 510 420 Balance 510 420 Weight 92.2 kg General appearance: PRESENT: no acute distress, well-developed Exam: Overweight, female. Head exam: PRESENT: atraumatic, normocephalic Eye exam: PRESENT: EOMI, PERRLA Mouth exam: PRESENT: neck supple, tongue midline Neck exam: ABSENT: lymphadenopathy, tenderness Respiratory exam: PRESENT: clear to auscultation angelito, unlabored Cardiovascular exam: PRESENT: RRR GI/Abdominal exam: PRESENT: soft. ABSENT: organolmegaly, tenderness Extremities exam: ABSENT: pedal edema Musculoskeletal exam: PRESENT: normal inspection Neurological exam: PRESENT: alert, awake, oriented to person, oriented to place, oriented to time, oriented to situation Psychiatric exam: PRESENT: appropriate affect Focused psych exam: ABSENT: restlessness Skin exam: PRESENT: normal color Results Laboratory Results: 11/29/18 06:38 11/29/18 06:38 11/28/18 11/28/18 11/28/18 11:15 11:15 11:15 WBC RBC Hgb Hct MCV MCH MCHC RDW Plt Count Retic Count (auto) 2.30 Absolute Retic 0.083 Sodium Potassium Chloride Carbon Dioxide Anion Gap BUN Creatinine Est GFR ( Amer) Est GFR (Non-Af Amer) Glucose Calcium Iron 23.0 L TIBC 536 H % Saturation 4 Ferritin 4.08 L Total Bilirubin AST ALT Alkaline Phosphatase Total Protein Albumin Vitamin B12 991.0 H Folate > 20.00 TSH 1.71 Blood Type Antibody Screen 11/28/18 11/29/18 11/29/18 14:16 06:38 06:38 WBC 7.8 RBC 3.80 Hgb 7.7 L Hct 25.5 L MCV 67 L MCH 20.3 L MCHC 30.2 L RDW 20.7 H Plt Count 403 Retic Count (auto) Absolute Retic Sodium 140.2 Potassium 4.0 Chloride 105 Carbon Dioxide 27 Anion Gap 8 BUN 8 Creatinine 0.58 Est GFR ( Amer) > 60 Est GFR (Non-Af Amer) > 60 Glucose 85 Calcium 8.6 Iron TIBC % Saturation Ferritin Total Bilirubin 0.6 AST 15 ALT 20 Alkaline Phosphatase 114 Total Protein 6.8 Albumin 3.4 L Vitamin B12 Folate TSH Blood Type A POSITIVE Antibody Screen NEGATIVE 11/28/18 11/28/18 11/29/18 11:15 11:15 06:38 Creatine Kinase 26 L CK-MB (CK-2) < 0.22 Troponin I < 0.012 NT-Pro-B Natriuret Pep 98 Impressions: Chest X-Ray 11/28/18 00:00 IMPRESSION: NO ACUTE DISEASE. Chest/Abdomen CTA 11/28/18 00:00 IMPRESSION: No evidence of pulmonary embolus or other acute intrathoracic process. 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 She did have some improvement with the blood transfusion however, we discussed the fact that she will need IV iron for the rest of her life. Her gut is not able to absorb the iron after gastric bypass. She agrees to iron infusion today. I will arrange. (2) Thrombocytosis Is this a current diagnosis for this admission?: Yes Plan: This is commonly found in iron deficiency and usually resolves with correction of the iron. - Plan Summary Plan Summary: All of her questions were answered to the best of my ability. I will be happy to follow her as an outpatient.
[2018-11-29] MEDS: CYANOCOBALAMIN (VITAMIN B-12) INJ 1000 MCG/1 ML VIAL IM SCH (15:22)
[2018-11-29 19:22] LABS: ABSOLUTE BASOPHILS # (AUTO) 0.1 10^3/uL (0.0-0.2); ABSOLUTE LYMPHOCYTES (AUTO) 2.1 10^3/uL (0.5-4.7); MEAN CORPUSCULAR HGB CONC 30.5 g/dL (32.0-36.0); TOTAL CELLS COUNTED % (AUTO) 100 %
[2018-11-29 19:40] LABS: ABSOLUTE EOSINOPHILS # (AUTO) 0.1 10^3/uL (0.0-0.6); ABSOLUTE MONOCYTES (AUTO) 0.6 10^3/uL (0.1-1.4); ABSOLUTE NEUT (AUTO) 6.2 10^3/uL (1.7-8.2); BASOPHILS % (AUTO) 0.8 % (0-2); EOSINOPHILS % (AUTO) 1.6 % (0-6); LYMPHOCYTES % (AUTO) 23.1 % (13-45); MONOCYTES % (AUTO) 6.6 % (3-13); PLATELET COUNT 449 10^3/uL (150-450); RED BLOOD COUNT 4.45 10^6/uL (3.72-5.28); RED CELL DISTRIBUTION WIDTH 22.7 % (11.5-14.0); SEGMENTED NEUTROPHILS % (AUTO) 67.9 % (42-78); WHITE BLOOD COUNT 9.1 10^3/uL (4.0-10.5)
[2018-11-29 19:42] LABS: HEMOGLOBIN 9.8 g/dL (12.0-15.5); MEAN CORPUSCULAR VOLUME 72 fl (80-97)
[2018-11-30] MEDS: MORPHINE SULFATE 10 MG/ML INJ IV PRN ×2 (00:26→08:56)
[2018-11-30 05:47] LABS: ABSOLUTE EOSINOPHILS # (AUTO) 0.2 10^3/uL (0.0-0.6); ABSOLUTE LYMPHOCYTES (AUTO) 2.5 10^3/uL (0.5-4.7); ABSOLUTE MONOCYTES (AUTO) 0.4 10^3/uL (0.1-1.4); ABSOLUTE NEUT (AUTO) 4.6 10^3/uL (1.7-8.2); BASOPHILS % (AUTO) 0.6 % (0-2); EOSINOPHILS % (AUTO) 2.8 % (0-6); HEMATOCRIT 30.3 % (36.0-47.0); HEMOGLOBIN 9.4 g/dL (12.0-15.5); LYMPHOCYTES % (AUTO) 31.8 % (13-45); MEAN CORPUSCULAR HGB CONC 31.1 g/dL (32.0-36.0); MEAN CORPUSCULAR VOLUME 71 fl (80-97); MONOCYTES % (AUTO) 5.6 % (3-13); PLATELET COUNT 388 10^3/uL (150-450); RED BLOOD COUNT 4.29 10^6/uL (3.72-5.28); RED CELL DISTRIBUTION WIDTH 22.6 % (11.5-14.0); SEGMENTED NEUTROPHILS % (AUTO) 59.2 % (42-78); TOTAL CELLS COUNTED % (AUTO) 100 %; WHITE BLOOD COUNT 7.8 10^3/uL (4.0-10.5)
[2018-11-30 09:58] VITALS: BP 139/87
[2018-11-30] MEDS: FAMOTIDINE 20 MG TABLET PO SCH (10:43)
[2018-11-30] MEDS: GUAIFENESIN 600 MG TABLET.SA PO SCH (10:43)
[2018-11-30] MEDS: FOLIC ACID 1 MG TABLET PO SCH (10:43)
[2018-11-30] MEDS: ENOXAPARIN SODIUM INJ 40 MG/0.4 ML DISP.SYRIN SUBCUT SCH (10:43)
[2018-11-30] MEDS: CHOLECALCIFEROL (D3) 1,000 UNIT TABLET PO SCH (10:44)
[2018-11-30] MEDS: CYANOCOBALAMIN (VITAMIN B-12) INJ 1000 MCG/1 ML VIAL IM SCH (10:44)
--- NOTE | 2018-12-04 16:23 | PDOC DISCHARGE SUMMARY ---
General - Admit/Disc Date/PCP Admission Date/Primary Care Provider: 11/28/18 15:09 Discharge Date: 11/30/18 - Discharge Diagnosis (1) Anemia Is this a current diagnosis for this admission?: Yes (2) Chest pain, non-cardiac Is this a current diagnosis for this admission?: Yes (3) Obesity Is this a current diagnosis for this admission?: No (4) Thrombocytosis Is this a current diagnosis for this admission?: Yes - Additional Information Resuscitation Status: Full Code Discharge Diet: As Tolerated Discharge Activity: Activity As Tolerated Prescriptions: Acetaminophen with Codeine [Tylenol #3 Tablet] 1 each PO Q8HP PRN 4 Days #15 tablet PRN Reason: Promethazine HCl [Phenergan 25 mg Tablet] 25 mg PO Q8 PRN 5 Days #15 tablet PRN Reason: Home Medications: Acetaminophen [Tylenol 325 mg Tablet] 325 mg PO DAILYP PRN 11/29/18 Albuterol Sulfate [Proair HFA Inhalation Aerosol 8.5 gm MDI] 1 puff IH Q4 PRN 11/29/18 Ca/D3/Mag Ox/Zinc/Paper Machine Backtender/Cesar/Bor [Calcium 600-D3 Plus Caplet] 2 tab-cap PO DAILY 11/29/18 Cetirizine HCl [Zyrtec 10 mg Tablet] 1 tab PO DAILY 11/29/18 Cholecalciferol (Vitamin D3) [Vitamin D3 1000 Unit Tablet] 2,000 unit PO DAILY 11/29/18 Diphenhydramine HCl [Benadryl] 25 mg PO DAILYP PRN 11/29/18 Docusate Sodium [Stool Softener] 100 mg PO BID PRN 11/29/18 Doxycycline Hyclate [Vibramycin 100 mg Tablet] 100 mg PO BID 11/29/18 Ferrous Sulfate [Iron] 650 mg PO BID PRN 11/29/18 Fluticasone Propionate [Flonase Nasal Downs 50 Mcg/Downs 16 gm] 2 sprays NASL DAILY 11/29/18 Mecobalamin [B-12] 1,000 mcg SL DAILY 11/29/18 Multivit with Calcium,Iron,Min [Women's Daily Formula] 2 each PO DAILY 11/29/18 Naproxen Sodium [Midol] 220 mg PO ASDIR PRN 11/29/18 Acetaminophen with Codeine [Tylenol #3 Tablet] 1 each PO Q8HP PRN 4 Days #15 tablet 11/30/18 Promethazine HCl [Phenergan 25 mg Tablet] 25 mg PO Q8 PRN 5 Days #15 tablet 11/30/18 Ondansetron [Zofran Odt 4 mg Tablet] 1 - 2 tab PO Q4H PRN #15 tab.rapdis 12/01/18 History of Present Illness History of Present Illness: ANTIONE MAY is a 38 year old female A1 with past medical history of morbid obesity status post gastric bypass in 2008, chronic anemia history of several PRBC transfusion, chronic iron and vitamin B12, history of heavy menstrual bleeding presenting to ED complaining of chronic worsening weakness, fatigue, dizziness. Last night she started having sob, left-sided chest pain. Patient is stating that she thought she was taking a Tylenol for chronic bilateral leg pain, but her daughter had given her naproxen by mistake, after taking naproxen patient started to having worsening epi-gastric abdominal pain, non-radiating left-sided chest pain, sharp, worse with movement and cough. Currently menstruating day 3. She states that her menstruation usually lasts 5 days, first 2 days usually heavy bleeding. She also endorses history of nosebleeds, easy bruising, excessive bleeding post dental extraction. Denies any hemoptysis, hematemesis, melena, hematochezia or hematuria. She has been treating her anemia with iron, B12, multivitamin supplements. Never been evaluated by solar energy engineer. In ED hemoglobin 6.7, platelet 460, troponins less than 0.012, EKG no acute changes. She was given 2 PRBCs and hospitalist was consulted for admission. Hospital Course Hospital Course: (1) Anemia Microcytic anemia. MCV 64. Severe iron deficiency anemia. Most likely iron deficiency anemia combined with B12 deficiency due to history of gastric bypass. Endorses heavy bleeding, denies any hematemesis, hematochezia, Hemoccult, melena or hematuria. Received 2 PRBC transfusion on 11/28/2018. 11/30/2018 WBC 7.8, hemoglobin 9.4 up from 6.7 status post 2 PRBC transfusion on 11/28/2018. Retic wnl. Iron 23.0, TIBC 536, percent saturation 4, ferritin 4.08, B12 991, folic acid > 20, LDH 142. Received 1 infusion of Injectafer. Oncology was consulted. Recommendation was to infuse Injectafer and follow-up with Dr. Garrett as outpatient in 3 to 4 weeks. Lifelong iron infusion was recommended patient may not be able to absorb iron adequately due to history of gastric bypass. Please refer to oncology notes. Continued on iron, B12, folic acid supplements. (2) Chest pain, non-cardiac Resolved. Most likely noncardiac due to severe anemia. EKG negative for any acute changes, troponins negative. 11/28/2018 CTA negative for PE. (3) Obesity Status post gastric bypass x10 years. Lifestyle and diet modification. TSH within normal limits. (4) Thrombocytosis Resolved. Likely due to iron deficiency anemia. Physical Exam Vital Signs: Temp Pulse Resp BP Pulse Ox 98.2 F 78 16 139/87 H 98 11/30/18 10:15 11/30/18 10:15 11/30/18 10:15 11/30/18 10:15 11/30/18 10:15 General appearance: PRESENT: obese Head exam: PRESENT: atraumatic, normocephalic Eye exam: PRESENT: conjunctiva pink, EOMI, PERRLA. ABSENT: scleral icterus Ear exam: PRESENT: normal external ear exam Mouth exam: PRESENT: moist, tongue midline Neck exam: ABSENT: carotid bruit, JVD, lymphadenopathy, thyromegaly Respiratory exam: PRESENT: clear to auscultation angelito. ABSENT: rales, rhonchi, wheezes Cardiovascular exam: PRESENT: RRR. ABSENT: diastolic murmur, rubs, systolic murmur Pulses: PRESENT: normal dorsalis pedis pul Vascular exam: PRESENT: normal capillary refill GI/Abdominal exam: PRESENT: normal bowel sounds, soft. ABSENT: distended, guarding, mass, organolmegaly, rebound, tenderness Rectal exam: PRESENT: deferred Extremities exam: PRESENT: full ROM. ABSENT: calf tenderness, clubbing, pedal edema Neurological exam: PRESENT: alert, awake, oriented to person, oriented to place, oriented to time, oriented to situation, CN II-XII grossly intact. ABSENT: motor sensory deficit Psychiatric exam: PRESENT: appropriate affect, normal mood. ABSENT: homicidal ideation, suicidal ideation Skin exam: PRESENT: dry, intact, warm. ABSENT: cyanosis, rash Results Laboratory Results: 11/30/18 05:34 11/29/18 06:38 11/28/18 11/28/18 11/29/18 11:15 11:15 06:38 Creatine Kinase 26 L CK-MB (CK-2) < 0.22 Troponin I < 0.012 NT-Pro-B Natriuret Pep 98 Impressions: Chest X-Ray 11/28/18 00:00 IMPRESSION: NO ACUTE DISEASE. Chest/Abdomen CTA 11/28/18 00:00 IMPRESSION: No evidence of pulmonary embolus or other acute intrathoracic process. Qualifiers - * PATIENT BEING DISCHARGED WITH ANY OF THE FOLLOWING DIAGNOSIS: No Acute Heart Failure Is this a Heart Failure Patient?: No
== END 2018-11-30 10:40 | disposition home or self-care (01) ==
LOC: ER 07:53 → EH 15:09 → INTOOBSV 15:09 → 5 18:55
PROVIDERS: ADMIT Internal Medicine; ATTEND Internal Medicine
PROC: 30233N1 Transfusion of Nonautologous Red Blood Cells into Peripheral Vein, Percutaneous Approach (ICD-10-PCS; principal; 2018-11-28)
PROC: 30233N1 Transfusion of Nonautologous Red Blood Cells into Peripheral Vein, Percutaneous Approach (ICD-10-PCS; 2018-11-29)
DX: D50.0 Iron deficiency anemia secondary to blood loss (chronic) (principal); E66.9 Obesity, unspecified; D47.3 Essential (hemorrhagic) thrombocythemia; R07.89 Other chest pain; R10.13 Epigastric pain; T39.315A Adverse effect of propionic acid derivatives, initial encounter; K91.2 Postsurgical malabsorption, not elsewhere classified; K95.89 Other complications of other bariatric procedure; Y83.2 Surgical operation with anastomosis, bypass or graft as the cause of abnormal reaction of the patient, or of later complication, without mention of misadventure at the time of the procedure; G89.29 Other chronic pain; M79.605 Pain in left leg; M79.604 Pain in right leg; Z98.84 Bariatric surgery status; Z79.899 Other long term (current) drug therapy; Z82.49 Family history of ischemic heart disease and other diseases of the circulatory system; Z83.2 Family history of diseases of the blood and blood-forming organs and certain disorders involving the immune mechanism; Z68.33 Body mass index [BMI] 33.0-33.9, adult; Z88.8 Allergy status to other drugs, medicaments and biological substances
CPT/HCPCS: 93005; 99285; 96372; 86900; 86901; 36415 ×3; 82553; 36430; 86850; 82607; 82550; 82728; 82746; 83010; 83540; 83550; 83615; 83690; 84443; 84703; 85025 ×3; 85027; 85610; 85730; 85045; 80053 ×2; 84484; 85245; 82652; 86920; 83880; 71045; 71275; 93010; G0378 ×4; P9016 ×2; J3420 ×2; S0119; J1750; J3490 ×2; J2270; J7050; J7030

== ENCOUNTER 2018-12-01 07:44 | Emergency (ER) | payer BC ==
[2018-12-01] MEDS ORDERED: PROCHLORPERAZINE EDISYLATE INJ 10 MG/2 ML VIAL IV ONE (08:44)
[2018-12-01] MEDS ORDERED: ONDANSETRON HCL INJ/PF 4 MG/2 ML SDV IV ONE (08:44)
[2018-12-01 09:30] LABS: ABSOLUTE BASOPHILS # (AUTO) 0.1 10^3/uL (0.0-0.2); ABSOLUTE EOSINOPHILS # (AUTO) 0.2 10^3/uL (0.0-0.6); ABSOLUTE LYMPHOCYTES (AUTO) 1.5 10^3/uL (0.5-4.7); ABSOLUTE MONOCYTES (AUTO) 0.5 10^3/uL (0.1-1.4); ABSOLUTE NEUT (AUTO) 8.2 10^3/uL (1.7-8.2); BASOPHILS % (AUTO) 0.5 % (0-2); HEMATOCRIT 32.3 % (36.0-47.0); LYMPHOCYTES % (AUTO) 14.2 % (13-45); MEAN CORPUSCULAR HGB CONC 31.1 g/dL (32.0-36.0); MEAN CORPUSCULAR VOLUME 71 fl (80-97); MONOCYTES % (AUTO) 4.6 % (3-13); PLATELET COUNT 468 10^3/uL (150-450); RED BLOOD COUNT 4.56 10^6/uL (3.72-5.28); RED CELL DISTRIBUTION WIDTH 22.8 % (11.5-14.0); SEGMENTED NEUTROPHILS % (AUTO) 78.7 % (42-78); TOTAL CELLS COUNTED % (AUTO) 100 %; WHITE BLOOD COUNT 10.5 10^3/uL (4.0-10.5)
[2018-12-01 09:46] LABS: ALANINE AMINOTRANSFERASE 8 U/L (9-52); ALBUMIN 3.8 g/dL (3.5-5.0); ALKALINE PHOSPHATASE 136 U/L (38-126); ANION GAP 10 (5-19); ASPARTATE AMINO TRANSFERASE 22 U/L (14-36); BILIRUBIN,DIRECT 0.4 mg/dL (0.0-0.4); BLOOD UREA NITROGEN 10 mg/dL (7-20); CALCIUM 9.2 mg/dL (8.4-10.2); CARBON DIOXIDE 27 mmol/L (22-30); CHLORIDE 105 mmol/L (98-107); GLUCOSE 85 mg/dL (75-110); POTASSIUM 3.8 mmol/L (3.6-5.0); SODIUM 142.1 mmol/L (137-145); TOTAL PROTEIN 7.7 g/dL (6.3-8.2)
[2018-12-01] MEDS ORDERED: NORMAL SALINE 1000 ML 1,000 ML IV ONE (10:48)
--- NOTE | 2018-12-01 10:52 | RADIOLOGY REPORT (SQ) ---
EXAM DESCRIPTION: U/S NON OB PEL TV W/DOPPLER COMPLETED DATE/TIME: 12/01/2018 10:26 am REASON FOR STUDY: abnormal vaginal bleeding COMPARISON: None. TECHNIQUE: Dynamic and static grayscale images acquired of the pelvis via transvaginal approach and recorded on PACS. Additional selected color Doppler and spectral images recorded. LIMITATIONS: None. FINDINGS: UTERUS: Uterus is 10 x 6 x 5 cm in size. There are multiple calcified and non calcified u terine fibroids, the largest is 4 cm in size along the left uterine fundus. 8 mm in thickness ENDOMETRIAL STRIPE: No focal or generalized thickening. No masses. CERVIX: Small nabothian cysts. Cervix closed. RIGHT OVARY AND DOPPLER: Not visualized due to adnexal bowel gas and limited acoustic window LEFT OVARY AND DOPPLER: Not visualized due to adnexal bowel gas and limited acoustic window FREE FLUID: None noted. OTHER: No other significant finding. IMPRESSION: Fibroid uterus. Normal endometrial stripe thickness. Ovaries not visualized due to marrero ited acoustic window TECHNICAL DOCUMENTATION: JOB ID: [id number] [employer]- All Rights Reserved Rev-12/07 Reading location - IP/workstation name: [email or web address]
--- NOTE | 2018-12-01 11:23 | ER Document Report ---
ED GI/ - General Chief Complaint: Vaginal Bleeding Stated Complaint: BLEEDING, SEVERE CRAMPS, HEADACHE Time Seen by Provider: 12/01/18 08:09 Primary Care Provider: JOHN OG MD [EMERITUS] - Follow up as needed HASMUKH LI MD [EMERITUS] - Follow up as needed Mode of Arrival: Ambulatory Information source: Patient Notes: Patient is a 38-year-old female presenting to the emergency department with complaints of bilateral leg cramping, vaginal bleeding, dizziness, headache and weakness. Patient reports that she was admitted to her hospital 4 days ago and discharged yesterday for anemia. Patient reports she had to have between 4 to 6 units of blood. Patient states that last night she started having some vaginal bleeding which she thinks was her menstrual cycle she also reports having abdominal pain and distention. She reports bleeding has slowed down at this time. She denies any fevers, vomiting or diarrhea. TRAVEL OUTSIDE OF THE [place] IN LAST 30 DAYS: No - Related Data Allergies/Adverse Reactions: NSAIDS (Non-Steroidal Anti-Inflamma Allergy (Verified 12/01/18 07:45) steriods Allergy (Uncoded 12/01/18 07:45) Past Medical History - General Information source: Patient Last Menstrual Period: 11/26/2018 - Social History Smoking Status: Never Smoker Chew tobacco use (# tins/day): No Frequency of alcohol use: None Drug Abuse: None Family History: Reviewed & Not Pertinent Patient has suicidal ideation: No Patient has homicidal ideation: No - Medical History Medical History: Negative - Past Medical History Cardiac Medical History: Denies: Hx Coronary Artery Disease Endocrine Medical History: Denies: Hx Diabetes Mellitus Type 1, Hx Diabetes Mellitus Type 2 Renal/ Medical History: Denies: Hx Peritoneal Dialysis Past Surgical History: Reports: Hx Gastric Bypass Surgery, Other - Review of Systems - Review of Systems Constitutional: See HPI Cardiovascular: See HPI Genitourinary: See HPI Female Genitourinary: See HPI -: Yes All other systems reviewed and negative Physical Exam - Vital signs Vitals: Temp Pulse Resp BP Pulse Ox 99.2 F 84 18 150/89 H 98 12/01/18 07:49 12/01/18 07:49 12/01/18 07:49 12/01/18 07:49 12/01/18 07:49 - Notes Notes: PHYSICAL EXAMINATION: GENERAL: Well-appearing, well-nourished and in no acute distress. HEAD: Atraumatic, normocephalic. EYES: Pupils equal round and reactive to light, extraocular movements intact, conjunctiva are normal. ENT: Nares patent, oropharynx clear without exudates. Moist mucous membranes. NECK: Normal range of motion, supple without lymphadenopathy LUNGS: Breath sounds clear to auscultation bilaterally and equal. No wheezes rales or rhonchi. HEART: Regular rate and rhythm without murmurs ABDOMEN: Soft, nontender, nondistended abdomen. No guarding, no rebound. No masses appreciated. Female : No CVA tenderness. Patient declined speculum vaginal exam. Musculoskeletal: Normal range of motion, no pitting or edema. No cyanosis. NEUROLOGICAL: Cranial nerves grossly intact. Normal speech, normal gait. Normal sensory, motor exams PSYCH: Normal mood, normal affect. SKIN: Warm, Dry, normal turgor, no rashes or lesions noted. Course - Re-evaluation Re-evalutation: CBC and CMP are unremarkable. Hemoglobin and hematocrit are stable in comparison with patient's discharge labs from 24 hours ago. Transvaginal ultrasound with no acute findings. Patient declined pelvic exam as she states that she does not have any pelvic pain and she is not actively bleeding at this time. Patient does report she feels better after infusion of 1 L normal saline. Patient will be discharged home, encouraged her to please follow-up with DIRECTOR INDEX for further management of her abnormal vaginal bleeding. Patient verbalizes understanding and agreement with same. ED return precautions were discussed. - Vital Signs Vital signs: Temp Pulse Resp BP Pulse Ox 98.6 F 81 16 138/76 H 100 12/01/18 12:15 12/01/18 12:15 12/01/18 12:15 12/01/18 12:15 12/01/18 12:15 - Laboratory Result Diagrams: 12/01/18 09:17 12/01/18 09:17 Laboratory results interpreted by me: 12/01/18 12/01/18 09:17 09:17 Hgb 10.0 L Hct 32.3 L MCV 71 L MCH 22.0 L MCHC 31.1 L RDW 22.8 H Plt Count 468 H Seg Neutrophils % 78.7 H ALT 8 L Alkaline Phosphatase 136 H Discharge - Discharge Clinical Impression: Uterine fibroid Qualifiers: Uterine leiomyoma location: unspecified location Qualified Code(s): D25.9 - Leiomyoma of uterus, unspecified Condition: Stable Disposition: HOME, SELF-CARE Additional Instructions: Your blood counts were elevated today in comparison with yesterday at the time of discharge. Please take pain medication as prescribed by the hospitalist. You may also take regular Tylenol. Use the antinausea medication as prescribed. It is important that you follow-up with a freight traffic consultant. I have given you a name of 2 of them in our local area who you can call. Please return to the emergency department with any new or worsening symptoms. Prescriptions: Ondansetron [Zofran Odt 4 mg Tablet] 1 - 2 tab PO Q4H PRN #15 tab.rapdis PRN Reason: For Nausea/Vomiting Referrals: HASMUKH LI MD [EMERITUS] - Follow up as needed JOHN OG MD [EMERITUS] - Follow up as needed
[2018-12-01 12:15] VITALS: BP 138/76
== END 2018-12-01 12:15 | disposition home or self-care (01) ==
LOC: ER 07:44
DX: D25.9 Leiomyoma of uterus, unspecified (principal); N93.9 Abnormal uterine and vaginal bleeding, unspecified; R25.2 Cramp and spasm; R42 Dizziness and giddiness; R51 Headache; R53.1 Weakness; R10.9 Unspecified abdominal pain; Z88.8 Allergy status to other drugs, medicaments and biological substances; Z98.84 Bariatric surgery status
CPT/HCPCS: 99284; 96361; 96374; 96375; 36415; 84703; 85025; 80053; 76830; 93976; J0780; J2405; J7030

== ENCOUNTER 2019-01-04 20:55 | Emergency (ER) | payer OTHER, BC ==
[2019-01-04] MEDS ORDERED: KETOROLAC TROMETHAMINE INJ/PF 30 MG/1 ML SDV IM ONE (23:02)
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
--- NOTE | 2019-01-05 01:05 | RADIOLOGY REPORT (SQ) ---
EXAM DESCRIPTION: CT THORACIC SPINE WITHOUT IV CONTRAST COMPLETED DATE/TME: 01/04/2019 23:03 CLINICAL HISTORY: 38 years, Female, trauma COMPARISON: None. TECHNIQUE: 354 Images stored on PACS. All CT scanners at this facility use dose modulation, iterative reconstruction, and/or weight based dosing when appropriate to reduce radiation dose to as low as reasonably achievable (ALARA). [facility]: Dose Right [facility]: CareDose [facility]: Dose Right [facility]: Teradose 4D [facility]: [employer] LIMITATIONS: None. FINDINGS: Evaluation of spinal canal contents limited due to CT technique. However, vertebral body height and alignment is preserved. Incidental note is made of benign vertebral body hemangioma of T11. The disc spaces appear preserved. Limited evaluation of extraspinal anatomic structures shows postsurgical change in the epigastric region. IMPRESSION: Unremarkable CT thoracic spine TECHNICAL DOCUMENTATION: Quality ID # [id number]: Final reports with documentation of one or more dose reduction techniques (e.g., Automated exposure control, adjustment of the mA and/or kV according to patient size, use of iterative reconstruction technique) copyright 2011 [employer]- All Rights Reserved
[2019-01-05 01:40] VITALS: BP 138/80
== END 2019-01-05 01:39 | disposition home or self-care (01) ==
LOC: ER 20:55
DX: S16.1XXA Strain of muscle, fascia and tendon at neck level, initial encounter (principal); M54.9 Dorsalgia, unspecified; M54.2 Cervicalgia; M54.6 Pain in thoracic spine; V89.2XXA Person injured in unspecified motor-vehicle accident, traffic, initial encounter
CPT/HCPCS: 99283; 96372; 72125; 72128; L0120; J1885

== ENCOUNTER 2019-10-13 17:12 | Emergency (ER) | payer BC, OTHER ==
[2019-10-13 18:07] LABS: A TYPE INFLUENZA AG NEGATIVE (NEGATIVE); B INFLUENZA AG NEGATIVE (NEGATIVE)
--- NOTE | 2019-10-13 18:48 | ER Document Report ---
ED Cardiac - General Chief Complaint: Cough Stated Complaint: CHEST PAIN Time Seen by Provider: 10/13/19 17:31 Primary Care Provider: LEXI BARRON MD [Primary Care Provider] - Follow up as needed Notes: PT C/O CHEST PAIN TODAY. DRY COUGH. NO TRAUMA. LOW-GRADE FEVER. NO RASHES. DENIES PREVIOUS CARDIAC HISTORY. NO ABD PAIN. H/O SINUSITIS. NO OTHER COMPLAINTS. CHEST PAIN IS SUBSTERNAL, BUT HAS RESOLVED. NO RADIATION OF THE PAIN. TRAVEL OUTSIDE OF THE [place] IN LAST 30 DAYS: No - Related Data Allergies/Adverse Reactions: NSAIDS (Non-Steroidal Anti-Inflamma Allergy (Verified 10/13/19 17:33) steriods Allergy (Uncoded 10/13/19 17:33) Past Medical History - General Information source: Patient - Social History Smoking Status: Unknown if Ever Smoked Frequency of alcohol use: None Drug Abuse: None Family History: Reviewed & Not Pertinent Patient has suicidal ideation: No Patient has homicidal ideation: No - Past Medical History Cardiac Medical History: Denies: Hx Coronary Artery Disease Endocrine Medical History: Denies: Hx Diabetes Mellitus Type 1, Hx Diabetes Mellitus Type 2 Renal/ Medical History: Denies: Hx Peritoneal Dialysis Past Surgical History: Reports: Hx Gastric Bypass Surgery, Other - Review of Systems - Review of Systems Cardiovascular: Chest pain. denies: Palpitations Respiratory: Cough. denies: Sputum -: Yes All other systems reviewed and negative Physical Exam - Vital signs Vitals: Pulse Ox 100 10/13/19 17:20 Interpretation: Normal - General General appearance: Appears well - HEENT Head: Normocephalic Eyes: Normal Ears: Normal External canal: Normal Sinus: Normal Nasal: Normal Mouth/Lips: Normal Mucous membranes: Normal Pharynx: Normal - Respiratory Respiratory status: No respiratory distress. No: Retractions, Tachypnea Chest status: Nontender Breath sounds: Normal Chest palpation: Normal - Cardiovascular Rhythm: Regular Heart sounds: Normal auscultation Murmur: No - Abdominal Inspection: Normal Tenderness: Nontender Notes: ELEVATED BMI - Back Back: Normal - Extremities General upper extremity: Normal inspection General lower extremity: Normal inspection - Neurological Neuro grossly intact: Yes Cognition: Normal - Psychological Associated symptoms: Normal affect, Normal mood - Skin Skin Temperature: Warm Skin Moisture: Dry Course - Re-evaluation Re-evalutation: 10/13/19 19:01 LABS REVIEWED. 10/13/19 20:10 CXR NAD PER RADIOLOGIST. 10/13/19 20:34 LABS REVIEWED. 10/13/19 20:41 PT STABLE. WILL D/C HOME WITH DIRECTIONS TO STAY AT HOME FOR NEXT 2 WEEKS. - Vital Signs Vital signs: Temp Pulse Resp BP Pulse Ox 98.9 F 85 22 H 149/88 H 100 10/13/19 17:32 10/13/19 17:32 10/13/19 17:32 10/13/19 18:01 10/13/19 18:01 - Laboratory Result Diagrams: 10/13/19 19:45 10/13/19 19:45 Laboratory results interpreted by me: 10/13/19 10/13/19 19:45 19:45 RDW 19.1 H Alkaline Phosphatase 134 H Total Protein 8.3 H - EKG Interpretation by Me EKG shows normal: Sinus rhythm Rate: Normal Rhythm: NSR Additional EKG results interpreted by me: 10/13/19 19:49 NORMAL QRS AXIS Discharge - Discharge Clinical Impression: Acute viral syndrome Chest pain Qualifiers: Chest pain type: unspecified Qualified Code(s): R07.9 - Chest pain, unspecified Condition: Stable Disposition: HOME, SELF-CARE Instructions: Viral Syndrome ([facility]), Chest Pain of Unclear Cause ([facility]) Additional Instructions: RETURN AT ONCE IF WORSE OR NEW SYMPTOMS. CALL YOUR DOCTOR FOR RECHECK TOMORROW. STAY AT HOME FOR THE NEXT 2 WEEKS. Referrals: LEXI BARRON MD [Primary Care Provider] - Follow up as needed
--- NOTE | 2019-10-13 19:46 | RADIOLOGY REPORT (SQ) ---
EXAM DESCRIPTION: CHEST SINGLE VIEW COMPLETED DATE/TIME: 10/13/2019 7:20 pm REASON FOR STUDY: CHEST PAIN COMPARISON: 11/28/2018 EXAM PARAMETERS: NUMBER OF VIEWS: One view. TECHNIQUE: Single frontal radiographic view of the chest acquired. RADIATION DOSE: NA LIMITATIONS: None. FINDINGS: LUNGS AND PLEURA: No opacities, masses or pneumothorax. No pleural effusion. MEDIASTINUM AND HILAR STRUCTURES: No masses. Contour normal. HEART AND VASCULAR STRUCTURES: Heart normal in size. Normal vasculature. BONES: No acute findings. HARDWARE: None in the chest. OTHER: No other significant finding. IMPRESSION: NO ACUTE RADIOGRAPHIC FINDING IN THE CHEST. TECHNICAL DOCUMENTATION: JOB ID: [id number] 2010 [employer]- All Rights Reserved Reading location - IP/workstation name: [email or web address]
[2019-10-13 20:05] LABS: ABSOLUTE EOSINOPHILS # (AUTO) 0.2 10^3/uL (0.0-0.6); ABSOLUTE LYMPHOCYTES (AUTO) 1.7 10^3/uL (0.5-4.7); ABSOLUTE MONOCYTES (AUTO) 0.3 10^3/uL (0.1-1.4); ABSOLUTE NEUT (AUTO) 5.3 10^3/uL (1.7-8.2); BASOPHILS % (AUTO) 0.4 % (0-2); HEMATOCRIT 40.7 % (36.0-47.0); HEMOGLOBIN 13.7 g/dL (12.0-15.5); LYMPHOCYTES % (AUTO) 22.8 % (13-45); MEAN CORPUSCULAR HEMOGLOBIN 30.4 pg (27.0-33.4); MEAN CORPUSCULAR HGB CONC 33.8 g/dL (32.0-36.0); MEAN CORPUSCULAR VOLUME 90 fl (80-97); MONOCYTES % (AUTO) 4.6 % (3-13); PLATELET COUNT 275 10^3/uL (150-450); RED BLOOD COUNT 4.52 10^6/uL (3.72-5.28); RED CELL DISTRIBUTION WIDTH 19.1 % (11.5-14.0); SEGMENTED NEUTROPHILS % (AUTO) 70.2 % (42-78); TOTAL CELLS COUNTED % (AUTO) 100 %; WHITE BLOOD COUNT 7.5 10^3/uL (4.0-10.5)
[2019-10-13 20:20] LABS: ALBUMIN 4.4 g/dL (3.5-5.0); ALKALINE PHOSPHATASE 134 U/L (38-126); ANION GAP 9 (5-19); ASPARTATE AMINO TRANSFERASE 29 U/L (14-36); BILIRUBIN,TOTAL 0.4 mg/dL (0.2-1.3); BLOOD UREA NITROGEN 9 mg/dL (7-20); CALCIUM 9.1 mg/dL (8.4-10.2); CARBON DIOXIDE 27 mmol/L (22-30); CHLORIDE 103 mmol/L (98-107); GLUCOSE 80 mg/dL (75-110); POTASSIUM 4.2 mmol/L (3.6-5.0); TOTAL PROTEIN 8.3 g/dL (6.3-8.2)
[2019-10-13 21:04] VITALS: BP 119/88
--- NOTE | 2019-10-13 21:33 | EKG REPORT ---
SEVERITY:- NORMAL ECG - SINUS RHYTHM : Confirmed by: Sameer Villasenor MD 13-Oct-2019 21:32:28
== END 2019-10-13 21:01 | disposition home or self-care (01) ==
LOC: ER 17:12
DX: B34.9 Viral infection, unspecified (principal); R05 Cough; R50.9 Fever, unspecified; R07.9 Chest pain, unspecified; Z98.84 Bariatric surgery status
CPT/HCPCS: 36415; 71045; 80053; 84484; 84703; 85025; 87070; 87804; 87880; 93005; 93010; 99285

== ENCOUNTER → 2020-01-30 | Outpatient (CLI) | payer BC ==
--- NOTE | 2020-01-30 12:45 | ER [facility] ASSESSMENT REPORT ---
Intake - In the Last 14 days Have you traveled outside [place]?: No Have you been in close contact with someone CONFIRMED: No Worked in Healthcare?: Yes - Symptoms Subjective Fever([place] feverish): No Chills: No Muscule Aches: No Runny Nose: No Sore Throat: No Cough (New or worsening chronic cough): Yes Shortness of breath: No Nausea or Vomiting: No Headache: Yes Abdominal Pain: No Diarrhea(3 or more loose stools in last 24 hours): Yes - Do you have any of the following Chronic lung disease: Asthma or emphysema or COPD: No Cystic Fibrosis: No Diabetes: No High Blood Pressure: No Cardiovascular Disease: No Chronic Kidney Disease: No Chronic Liver Disease: No Chronic blood disorder like Sickle Cell Disease: No Weak immune system due to disease or medication: Yes Neurologic condition that limits movement: No Developmental delay - Moderate to Severe: No Recent (within past 2 weeks) or current : No Morbid Obesity (>100 pounds over ideal weight): No - Objective Temperature: 98.8 F Pulse Rate: 80 Respiratory Rate: 16 Blood Pressure: 134/86 O2 Sat by Pulse Oximetry: 96 Objective: Given above, testing performed: If Testing Performed: Test Specimen Type Sent to General - General Information source: Patient Notes: Patient presents to the [facility] for screening for the coronavirus. Patient is a healthcare worker. Patient denies any known exposure. Patient does report cough and headache with mild diarrhea. Patient has had the symptoms for the past 2 days. - Related Data Allergies/Adverse Reactions: NSAIDS (Non-Steroidal Anti-Inflamma Allergy (Verified 10/13/19 17:33) steriods Allergy (Uncoded 10/13/19 17:33) Past Medical History - General Information source: Patient - Social History Smoking Status: Never Smoker Family History: Reviewed & Not Pertinent - Medical History Medical History: Other - Anemia,"a weak immune system" - Past Medical History Cardiac Medical History: Denies: Hx Coronary Artery Disease Endocrine Medical History: Denies: Hx Diabetes Mellitus Type 1, Hx Diabetes Mellitus Type 2 Renal/ Medical History: Denies: Hx Peritoneal Dialysis Past Surgical History: Reports: Hx Gastric Bypass Surgery, Other - Physical Exam - Notes Notes: Full physical exam could not be performed due to covid 19 isolation protocols. Constitutional: Nontoxic appearance, no acute distress Eyes: Nonicteric, extraocular movements intact, sclera clear ENT: Posterior pharynx without exudate, no tonsillar hypertrophy Cardiovascular: Heart rate and rhythm regular, no JVD Respiratory: Breath sounds clear bilaterally, nonlabored breathing, no use of accessory muscles, no tachypnea Gastrointestinal: Abdomen not distended Muculoskeletal: Moves all extremities well Skin: Normal color Neuro: Awake alert oriented, normal speech Psych: Normal mood and affect Diagnostic Results Laboratory Results: The patient was evaluated during the global Covid 19 pandemic, and that diagnosis was suspected/considered upon their initial presentation. Their evaluation, treatment and testing was consistent with current guidelines for patients who present with complaints or symptoms that may be related to Covid 19. Patient presents with upper respiratory symptoms worrisome for possible Covid 19. Patient does not have emergency worrying symptoms such as difficulty breathing, shortness of breath, chest pain, pressure, confusion or cyanosis. Patient appears suitable for discharge as they are not of an advanced age, do not have any chronic medical conditions such as diabetes, CAD, immune deficiency, chronic lung disease or chronic kidney disease. Patient's vital signs are stable and patient is nontoxic in appearance. Good return precautions have been discussed with patient, patient verbalized understanding and is agreeable with discharge plan of care at this time. Patient Education/Counseling Counseling/Education: Patient was provided with discharge information including: As a person under investigation for Covid 19, the [place] department of Health and Human Services, division of public health advises you to adhere to the following guidance until your test results are reported to you. If your test result is positive, you will receive additional information from your provider and your local health department at that time. Remain at home until you are cleared by the health provider or public health authorities. Keep a log of visitors to your home, notify any visitors to your home of your is olation status. If you plan to move to a new address or leave the county, notify the local health department in your County. Call your doctor or seek care if you have an urgent medical need. Before seeking medical care, call ahead to get instructions from the provider before arriving at the medical office clinic or hospital. Notify them that you are being tested for the virus that causes Covid 19 so that arrangements can be made, as necessary, to prevent transmission to others in the healthcare setting. Next, notify the local health department in your county. If a medical emergency arises and you need to call 911, inform the first responders that you are being tested for the virus that causes Covid 19. Next, notify the local health department in your county. [facility] Discharge - Discharge Clinical Impression: Encounter for screening laboratory testing for COVID-19 virus Condition: Stable Disposition: Home; Selfcare
[2020-01-30 13:23] VITALS: BP 134/86
== END ==
LOC: RDC 12:30
PROVIDERS: ATTEND Physician Assistant
DX: Z20.828 Contact with and (suspected) exposure to other viral communicable diseases (principal); R05 Cough; R51 Headache; R19.7 Diarrhea, unspecified; Z88.8 Allergy status to other drugs, medicaments and biological substances
CPT/HCPCS: 87070; 87880; 87635; C9803; 99201; 99211